=== PATIENT | male | born 1955 | race Caucasian/White ===

== ENCOUNTER → 2019-02-17 | Outpatient (CLI) | payer OTHER ==
--- NOTE | 2019-02-17 10:12 | RAD ---
EXAM DESCRIPTION: Pelvis, single view CLINICAL HISTORY: PAIN IN RIGHT HIP FINDINGS/ IMPRESSION: Normal mineralization of the femoral heads. No fracture of the proximal femora or pelvis. No advanced arthrosis of the sacroiliac joints or pubic symphysis. Normal mineralization Degenerative disc disease in the lower lumbar spine Electronically signed by: Tam Mcclellan MD 02/17/2019 10:11 AM [facility]
--- NOTE | 2019-02-17 11:25 | RAD ---
EXAM DESCRIPTION: Right knee, 4 radiographs CLINICAL HISTORY: PAIN IN RIGHT KNEE FINDINGS/ IMPRESSION: Right total knee arthroplasty. No periprosthetic fracture or osteolysis. Subtle linear well-corticated lucency between the tibia and lateral tibial component may relate to loosening. No lucency along the medial component or stem Proximal tibiofibular severe osteoarthritis. Small suprapatellar joint effusion. Small patellar osteophytes Electronically signed by: Tam Mcclellan MD 02/17/2019 11:23 AM [facility]
== END ==
LOC: RAD 09:02
PROVIDERS: ATTEND Orthopaedic Surgery
DX: M17.11 Unilateral primary osteoarthritis, right knee (principal); M51.36 Other intervertebral disc degeneration, lumbar region; M25.551 Pain in right hip; Z96.651 Presence of right artificial knee joint